=== PATIENT | female | born 2000 | race Hispanic/Latino ===

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

== ENCOUNTER 2021-08-02 06:44 | Emergency (ER) | payer MEDICAID ==
[~2021-08-02] VITALS: Ht 160 cm; Wt 53.1 kg
[2021-08-02] MEDS ORDERED: ACETAMINOPHEN 500 MG TABLET ONE (07:26)
[2021-08-02 07:30] LABS: BASOPHILS % (AUTO) 0.8 % (0.0-5.0); EOSINOPHILS % (AUTO) 3.6 % (0.0-8.0); HEMATOCRIT 33.8 % (36-48); LYMPHOCYTES % (AUTO) 24.6 % (21.0-51.0); MEAN CORPUSCULAR HEMOGLOBIN 27.6 pg (27.0-33.0); MEAN CORPUSCULAR HGB CONC 31.7 g/dL (32.0-36.0); MEAN CORPUSCULAR VOLUME 87.3 fL (80-100); MONOCYTES % (AUTO) 6.6 % (3.0-13.0); NEUTROPHILS % (AUTO) 64.1 % (40.0-77.0); PLATELET COUNT (AUTO) 299 K/uL (130-400); RED BLOOD CELL COUNT(AUTO) 3.87 MIL/uL (4.00-5.50); RED CELL DISTRIBUTION WIDTH 15.9 % (11.0-15.5)
[2021-08-02] MEDS ORDERED: ACETAMINOPHEN 500 MG TABLET PO SCH (07:30)
[2021-08-02 07:34] LABS: APPEARANCE,URINE Cloudy (CLEAR); BILIRUBIN,URINE Negative (NEGATIVE); COLOR,URINE Yellow (YELLOW); GLUCOSE, URINE (UA) Negative (NEGATIVE); KETONES,URINE Negative (NEGATIVE); LEUKOCYTE ESTERASE ,URINE Moderate (NEGATIVE); NITRATE,URINE Negative (NEGATIVE); OCCULT BLOOD,URINE Negative (NEGATIVE); PROTEIN,URINE Trace mg/dL (NEGATIVE); UROBILINOGEN,URINE 0.2 mg/dL (0.2-1.0)
[2021-08-02 07:36] LABS: HCG,QUAL RESULT POSITIVE (NEGATIVE)
[2021-08-02 07:43] LABS: BACTERIA,URINE Few /HPF (None Seen); RBC,URINE 0-1 /HPF (0-1); SQUAMOUS EPITHELIAL CELL,UR Many /HPF (0-2)
[2021-08-02 07:45] LABS: BILIRUBIN,TOTAL 0.3 mg/dL (0.2-1.0); CREATININE 0.4 mg/dL (0.5-1.5); POTASSIUM 4.1 mmol/L (3.5-5.1); TOTAL PROTEIN, SERUM 7.2 g/dL (6.0-8.3)
[2021-08-02 08:07] VITALS: BP 100/57
[2021-08-02 08:13] LABS: AMPHET/METH SCREEN,URINE NEGATIVE (NEGATIVE); BARBITURATE SCREEN, URINE NEGATIVE (NEGATIVE); BENZODIAZEPINES SCREEN,URINE POSITIVE (NEGATIVE); CANNABINOID SCREEN,URINE POSITIVE (NEGATIVE); COCAINE SCREEN,URINE POSITIVE (NEGATIVE); OPIATE SCREEN,URINE NEGATIVE (NEGATIVE); PHENCYCLIDINE SCREEN,URINE NEGATIVE (NEGATIVE)
[2021-08-02] MEDS ORDERED: NITR100C PO (08:18)
[2021-08-02] MEDS ORDERED: ACET-66 PO (08:18)
== END 2021-08-02 08:30 | disposition home or self-care (01) ==
LOC: EDH 06:44
DX: O23.42 Unspecified infection of urinary tract in pregnancy, second trimester (principal); O99.322 Drug use complicating pregnancy, second trimester; F14.10 Cocaine abuse, uncomplicated; F13.10 Sedative, hypnotic or anxiolytic abuse, uncomplicated; Z3A.20 20 weeks gestation of pregnancy
CPT/HCPCS: 36415; 76805; 80053; 80305; 81001; 81025; 82150; 83690; 84702; 85025; 87088

== ENCOUNTER 2021-08-03 23:15 | Inpatient (IN) | payer MEDICAID ==
[~2021-08-03] VITALS: Ht 160 cm; Wt 53.5 kg
[~2021-08-03 23:15] MED LIST: ACET-66 PO; NITR100C PO
[2021-08-03] MEDS ORDERED: LORAZEPAM 2 MG/ML 1 ML VIAL ONE (23:35)
[2021-08-03 23:50] LABS: BASOPHILS % (AUTO) 0.5 % (0.0-5.0); EOSINOPHILS % (AUTO) 1.5 % (0.0-8.0); HEMATOCRIT 34.2 % (36-48); LYMPHOCYTES % (AUTO) 25.8 % (21.0-51.0); MEAN CORPUSCULAR HEMOGLOBIN 27.6 pg (27.0-33.0); MEAN CORPUSCULAR HGB CONC 31.3 g/dL (32.0-36.0); MEAN CORPUSCULAR VOLUME 88.4 fL (80-100); MONOCYTES % (AUTO) 5.5 % (3.0-13.0); NEUTROPHILS % (AUTO) 66.3 % (40.0-77.0); PLATELET COUNT (AUTO) 330 K/uL (130-400); RED BLOOD CELL COUNT(AUTO) 3.87 MIL/uL (4.00-5.50); RED CELL DISTRIBUTION WIDTH 15.3 % (11.0-15.5); WHITE BLOOD COUNT (AUTO) 13.6 K/uL (4.8-10.8)
[2021-08-03 23:56] LABS: CARBON DIOXIDE 20 mmol/L (21-32); CHLORIDE 103 mmol/L (101-111); CREATININE 0.7 mg/dL (0.5-1.5); GLOMERULAR FILTR. RATE CALC 112 mL/min (>60); GLUCOSE,RANDOM 95 mg/dL (70-105); SODIUM SERUM 139 mmol/L (136-145); UREA NITROGEN, BLOOD 11 mg/dL (7-18)
[2021-08-03] MEDS ORDERED: 0.9% NACL 500ML IV.SOLN 500 ML IV ONE (23:59)
[2021-08-04] MEDS ORDERED: MAGNESIUM 2GM PREMIX 50ML 50 ML IV SCH
[2021-08-04] MEDS ORDERED: 0.9%NACL 1000ML 456 ML IV ONE
[2021-08-04 00:01] LABS: ALANINE AMINOTRANSFERASE 22 U/L (12-78); ALBUMIN 3.2 g/dL (3.5-5.0); ALCOHOL, BLOOD < 3 mg/dL (0-10); ASPARTATE AMINOTRANSFERASE 21 U/L (10-37); BILIRUBIN,TOTAL 0.2 mg/dL (0.2-1.0); TOTAL PROTEIN, SERUM 7.7 g/dL (6.0-8.3)
[2021-08-04] MEDS ORDERED: LEVETIRACETAM 500 MG/5 ML SD VIAL IV ONE ×2 (00:07→03:25)
[2021-08-04] MEDS: LEVETIRACETAM 500 MG in 0.9%NACL 100ML 100 ML IV SCH ×2 (00:10→20:31)
[2021-08-04] MEDS ORDERED: POTASSIUM BICARB/CIT AC 25 MEQ TABLET.EFF ONE (00:18)
[2021-08-04] MEDS ORDERED: ONDANSETRON 4MG INJ ONE ×2 (00:49→13:22)
[2021-08-04] MEDS ORDERED: LEVETIRACETAM 500 MG in 0.9%NACL 100ML 100 ML IV STA (02:54)
[2021-08-04] MEDS: 0.9%NACL 1000ML 1,000 ML IV SCH ×2 (03:28→15:57)
[2021-08-04 03:50] LABS: APPEARANCE,URINE Cloudy (CLEAR); BILIRUBIN,URINE Negative (NEGATIVE); COLOR,URINE Yellow (YELLOW); GLUCOSE, URINE (UA) Negative (NEGATIVE); KETONES,URINE 40 mg/dL (NEGATIVE); LEUKOCYTE ESTERASE ,URINE Negative (NEGATIVE); NITRATE,URINE Negative (NEGATIVE); OCCULT BLOOD,URINE Negative (NEGATIVE); PH,URINE 5.5 (5.0-8.0); PROTEIN,URINE Trace mg/dL (NEGATIVE)
[2021-08-04 03:59] LABS: BACTERIA,URINE None Seen /HPF (None Seen); MUCUS,URINE Rare LPF (None Seen); RBC,URINE None Seen /HPF (0-1); SQUAMOUS EPITHELIAL CELL,UR Rare /HPF (0-2); WBC,URINE 0-1 /HPF (0-1)
[2021-08-04] MEDS ORDERED: LORAZEPAM 2 MG/ML 1 ML VIAL IVP PRN ×3 (04:00→10:30)
[2021-08-04 04:08] LABS: AMPHET/METH SCREEN,URINE NEGATIVE (NEGATIVE); BARBITURATE SCREEN, URINE NEGATIVE (NEGATIVE); BENZODIAZEPINES SCREEN,URINE POSITIVE (NEGATIVE); CANNABINOID SCREEN,URINE POSITIVE (NEGATIVE); COCAINE SCREEN,URINE NEGATIVE (NEGATIVE); OPIATE SCREEN,URINE NEGATIVE (NEGATIVE); PHENCYCLIDINE SCREEN,URINE NEGATIVE (NEGATIVE)
[2021-08-04 04:10] VITALS: BP 106/56
[2021-08-04] MEDS ORDERED: POTASSIUM CHLORIDE 20MEQ/100ML 100 ML IV PRN (04:30)
[2021-08-04] MEDS ORDERED: POTASSIUM CHLORIDE 10% ELIXIR 20 MEQ/15 ML UDCUP PO PRN (04:30)
[2021-08-04 05:59] LABS: BASOPHILS % (AUTO) 0.4 % (0.0-5.0); EOSINOPHILS % (AUTO) 0.7 % (0.0-8.0); HEMATOCRIT 27.7 % (36-48); LYMPHOCYTES % (AUTO) 17.2 % (21.0-51.0); MEAN CORPUSCULAR HEMOGLOBIN 27.8 pg (27.0-33.0); MEAN CORPUSCULAR HGB CONC 32.1 g/dL (32.0-36.0); MEAN CORPUSCULAR VOLUME 86.6 fL (80-100); MONOCYTES % (AUTO) 4.9 % (3.0-13.0); NEUTROPHILS % (AUTO) 76.5 % (40.0-77.0); PLATELET COUNT (AUTO) 255 K/uL (130-400); RED CELL DISTRIBUTION WIDTH 15.3 % (11.0-15.5); WHITE BLOOD COUNT (AUTO) 10.4 K/uL (4.8-10.8)
[2021-08-04 06:39] LABS: ALBUMIN 2.4 g/dL (3.5-5.0); BILIRUBIN,TOTAL 0.3 mg/dL (0.2-1.0); CREATININE 0.4 mg/dL (0.5-1.5); MAGNESIUM 2.7 mg/dL (1.80-2.40); POTASSIUM 3.4 mmol/L (3.5-5.1)
[2021-08-04 08:12] VITALS: BP 97/46
[2021-08-04 10:54] VITALS: BP 98/56
[2021-08-04] MEDS ORDERED: ONDANSETRON 4MG INJ IVP PRN (13:30)
[2021-08-04] MEDS: PERMETHRIN LOTION 1% 59ML BOTTLE TP SCH (14:54)
[2021-08-04 17:20] VITALS: BP 101/56
[2021-08-04 20:35] VITALS: BP 106/65
[2021-08-05] VITALS (7 sets, daily range): BP systolic 93–109; BP diastolic 53–66
[2021-08-05] MEDS: PERMETHRIN LOTION 1% 59ML BOTTLE TP SCH ×2 (03:45→18:39)
[2021-08-05 04:11] LABS: EOSINOPHILS % (AUTO) 3.5 % (0.0-8.0); HEMATOCRIT 27.8 % (36-48); LYMPHOCYTES % (AUTO) 45.1 % (21.0-51.0); MEAN CORPUSCULAR HEMOGLOBIN 27.5 pg (27.0-33.0); MEAN CORPUSCULAR HGB CONC 30.6 g/dL (32.0-36.0); MONOCYTES % (AUTO) 8.8 % (3.0-13.0); NEUTROPHILS % (AUTO) 41.4 % (40.0-77.0); PLATELET COUNT (AUTO) 250 K/uL (130-400); RED BLOOD CELL COUNT(AUTO) 3.09 MIL/uL (4.00-5.50); RED CELL DISTRIBUTION WIDTH 15.8 % (11.0-15.5); WHITE BLOOD COUNT (AUTO) 6.1 K/uL (4.8-10.8)
[2021-08-05 04:20] LABS: ALBUMIN 1.9 g/dL (3.5-5.0); CREATININE 0.4 mg/dL (0.5-1.5)
[2021-08-05] MEDS: 0.9%NACL 1000ML 1,000 ML IV SCH (04:26)
[2021-08-05 04:34] LABS: POTASSIUM 2.8 mmol/L (3.5-5.1)
[2021-08-05] MEDS: LIDOCAINE HCL-MPF 1% 2ML VIAL IV PRN ×2 (04:44→09:25)
[2021-08-05] MEDS: KCL 20 MEQ ERTAB PO PRN ×4 (04:45→13:15)
[2021-08-05] MEDS: LEVETIRACETAM 500 MG in 0.9%NACL 100ML 100 ML IV SCH (09:25)
[2021-08-05] MEDS: LEVETIRACETAM 500 MG TABLET PO SCH (20:52)
[2021-08-06 04:09] VITALS: BP 100/53
[2021-08-06 04:49] LABS: BASOPHILS % (AUTO) 0.7 % (0.0-5.0); EOSINOPHILS % (AUTO) 2.9 % (0.0-8.0); HEMATOCRIT 29.8 % (36-48); LYMPHOCYTES % (AUTO) 33.1 % (21.0-51.0); MEAN CORPUSCULAR HEMOGLOBIN 27.8 pg (27.0-33.0); MEAN CORPUSCULAR HGB CONC 31.9 g/dL (32.0-36.0); MEAN CORPUSCULAR VOLUME 87.1 fL (80-100); MONOCYTES % (AUTO) 7.5 % (3.0-13.0); NEUTROPHILS % (AUTO) 55.4 % (40.0-77.0); PLATELET COUNT (AUTO) 271 K/uL (130-400); RED BLOOD CELL COUNT(AUTO) 3.42 MIL/uL (4.00-5.50); RED CELL DISTRIBUTION WIDTH 15.7 % (11.0-15.5); WHITE BLOOD COUNT (AUTO) 8.2 K/uL (4.8-10.8)
[2021-08-06 05:10] LABS: CREATININE 0.5 mg/dL (0.5-1.5); MAGNESIUM 1.7 mg/dL (1.80-2.40); POTASSIUM 4.4 mmol/L (3.5-5.1)
[2021-08-06 07:30] VITALS: BP 102/38
[2021-08-06] MEDS: LEVETIRACETAM 500 MG TABLET PO SCH (09:21)
[2021-08-06 11:12] VITALS: BP 105/61
[2021-08-06] MEDS ORDERED: PREN-18 PO (13:46)
[2021-08-06] MEDS ORDERED: LEVE-43 PO (13:46)
== END 2021-08-06 15:15 | disposition home or self-care (01) | DRG 566 ==
LOC: EDH 23:15 → EDHIP 23:16 → 4BH 08-04 04:04
PROVIDERS: ADMIT Internal Medicine; ATTEND Internal Medicine
DX: O99.352 Diseases of the nervous system complicating pregnancy, second trimester (principal); E44.1 Mild protein-calorie malnutrition; G40.409 Other generalized epilepsy and epileptic syndromes, not intractable, without status epilepticus; O99.112 Other diseases of the blood and blood-forming organs and certain disorders involving the immune mechanism complicating pregnancy, second trimester; B85.2 Pediculosis, unspecified; O99.322 Drug use complicating pregnancy, second trimester; D72.829 Elevated white blood cell count, unspecified; E87.6 Hypokalemia; F17.200 Nicotine dependence, unspecified, uncomplicated; O99.332 Smoking (tobacco) complicating pregnancy, second trimester; O99.282 Endocrine, nutritional and metabolic diseases complicating pregnancy, second trimester; F41.9 Anxiety disorder, unspecified; Z20.822 Contact with and (suspected) exposure to COVID-19; F19.90 Other psychoactive substance use, unspecified, uncomplicated; F14.10 Cocaine abuse, uncomplicated; O25.12 Malnutrition in pregnancy, second trimester; O99.342 Other mental disorders complicating pregnancy, second trimester; Z3A.20 20 weeks gestation of pregnancy; Z79.899 Other long term (current) drug therapy; Z91.19 Patient's noncompliance with other medical treatment and regimen; Z82.0 Family history of epilepsy and other diseases of the nervous system
CPT/HCPCS: 36415; 70544; 70551; 71045; 76805; 80048; 80053; 80177; 80305; 81001; 81025; 82040; 82150; 82607; 83690; 83735; 84132; 84702; 85025; 87040; 87088; 87635; 93005; C9803; G0378; J1953; J2060; J2405; J3475; J3480; J3490; J7040

== ENCOUNTER 2021-10-02 20:56 | Observation (INO) | payer MEDICAID ==
[~2021-10-02] VITALS: Ht 157.5 cm; Wt 59.0 kg
[~2021-10-02 20:56] MED LIST changes: +LEVE-43 PO; +PREN-18 PO
[2021-10-02 20:58] VITALS: BP 111/62
[2021-10-02 21:58] LABS: APPEARANCE,URINE Cloudy (CLEAR); BILIRUBIN,URINE Negative (NEGATIVE); COLOR,URINE Yellow (YELLOW); GLUCOSE, URINE (UA) Negative (NEGATIVE); KETONES,URINE Negative (NEGATIVE); LEUKOCYTE ESTERASE ,URINE Moderate (NEGATIVE); NITRATE,URINE Negative (NEGATIVE); OCCULT BLOOD,URINE Negative (NEGATIVE); PH,URINE 6.5 (5.0-8.0); PROTEIN,URINE Negative (NEGATIVE)
[2021-10-02 22:05] LABS: AMPHET/METH SCREEN,URINE NEGATIVE (NEGATIVE); BARBITURATE SCREEN, URINE NEGATIVE (NEGATIVE); BENZODIAZEPINES SCREEN,URINE NEGATIVE (NEGATIVE); CANNABINOID SCREEN,URINE NEGATIVE (NEGATIVE); COCAINE SCREEN,URINE NEGATIVE (NEGATIVE); OPIATE SCREEN,URINE NEGATIVE (NEGATIVE); PHENCYCLIDINE SCREEN,URINE NEGATIVE (NEGATIVE)
[2021-10-02 22:10] LABS: BACTERIA,URINE Few /HPF (None Seen); SQUAMOUS EPITHELIAL CELL,UR Moderate /HPF (0-2)
[2021-10-02 22:11] LABS: MUCUS,URINE Rare LPF (None Seen)
[2021-10-02] MEDS ORDERED: LACTATED RINGERS 1000ML IV SCH (23:30)
== END 2021-10-02 23:20 | disposition home or self-care (01) ==
LOC: EDH 20:56 → LDH 20:57
PROVIDERS: ADMIT Obstetrics & Gynecology; ATTEND Obstetrics & Gynecology
DX: O26.893 Other specified pregnancy related conditions, third trimester (principal); R10.30 Lower abdominal pain, unspecified; K59.00 Constipation, unspecified; Z3A.28 28 weeks gestation of pregnancy; Z79.899 Other long term (current) drug therapy
CPT/HCPCS: 59025; 80305; 81001; 87088; G0378

== ENCOUNTER 2021-10-22 13:01 | Emergency (ER) | payer MEDICAID ==
[~2021-10-22] VITALS: Ht 160 cm; Wt 61.7 kg
[2021-10-22 13:05] VITALS: BP 121/75
== END 2021-10-22 15:08 | disposition left against medical advice (07) ==
LOC: EDH 13:01
DX: M79.10 Myalgia, unspecified site (principal); Z20.822 Contact with and (suspected) exposure to COVID-19; Z53.21 Procedure and treatment not carried out due to patient leaving prior to being seen by health care provider
CPT/HCPCS: 87635; 87804 ×2; C9803

== ENCOUNTER 2024-06-14 08:32 | Inpatient (IN) | payer SELFPAY ==
[~2024-06-14] VITALS: Ht 160 cm; Wt 65.8 kg
--- NOTE | 2024-06-14 08:51 | ERN ---
General Chief Complaint: Abdominal Pain Stated Complaint: RUQ PAIN Time Seen by MD: 08:47 History of Present Illness Initial Comments Ms. Montenegro is a 23-year-old female who came to the ER due to right lower quadrant pain and nausea since 3 days. She reports right lower quadrant pain radiating to her back since 3 days, she had more than ten episodes of bile vomitings yesterday. Her last bowel movement was on Friday. She denies chest pain or shortness of breath or urinary frequency or pain with urination. Her L MP was on 05/31/24. Allergies: Coded Allergies: No Known Drug Allergies (Unverified Allergy, Unknown, 08/02/21) Home Meds Active Scripts Phenazopyridine HCl (Pyridium) 200 Mg Tab, 200 MG PO TIDP for 7 Days, #30 TAB Prov:PETTY JACKSON MD 06/14/24 Cephalexin Monohydrate (Keflex) 500 Mg Cap, 500 MG PO QID for 7 Days, #30 CAP Prov:PETTY JACKSON MD 06/14/24 Vit W-Ca,Fe,FA(<1 mg) ( Formula) 1 Each Tablet, 1 EACH PO DAILY for 90 Days, #90 TAB Prov:UNA VELAZQUEZ Jr., MD 08/06/21 Levetiracetam (Keppra) 500 Mg Tablet, 500 MG PO BID for 30 Days, #60 TAB Prov:UNA VELAZQUEZ Jr., MD 08/06/21 Nitrofurantoin Macrocrystal (Nitrofurantoin) 100 Mg Capsule, 100 MG PO BID for 5 Days, #10 CAP 0 Refills Prov:ABIMAEL FLOR MD 08/02/21 Acetaminophen (Tylenol) 500 Mg Tab, 500 MG PO Q6HPRN PRN for PAIN LEVEL 6 TO 10 for 7 Days, #30 TAB 0 Refills Prov:ABIMAEL FLOR MD 08/02/21 Past Medical History Past Medical History: No Pertinent History Past Surgical History: None Female( History) LMP: May 31, 2024 : 3 Para: 2 Aborts: 0 ROS Dictation Constitutional: No appetite loss, No fevers, chills , No night sweats, No weakness, fatigue Eye: No vision change, No redness, pain or discharge ENT: No hearing loss, ear pain or discharge, No nose bleeds, No sore throat, Neck: No swelling. pain or stiffness Respiratory: No cough, shortness of breath, wheezing Cardiovascular: No chest pain,, palpitations, dyspnea, No edema Gastrointestinal: Right lower quadrant pain with nausea and vomitings, No diarrhea, constipation Genitourinary: No painful urination, No blood in urine, No urinary incontinence, No frequency or urgency Musculoskeletal: No joint pain, muscle pain, swelling or stiffness Neurological: No numbness, tingling, No weakness, tremors or seizures Physical Exam Physical Exam Dictation General: Alert & Oriented, No acute distress. EENT: No conjunctival redness or discharge noted Tympanic membranes are clear, Normal hearing, Oral mucosa is moist, No pharyngeal erythema, No nasal discharge, No oral lesions. Neck: Non-tender, No jugular vein distention, No lymphadenopathy, No thyromegaly, Supple. Respiratory: Lungs are clear to auscultation, Respirations are non-labored, Breath sounds are equal, No chest wall tenderness, _. Cardiovascular: Normal rate, Normal rhythm, No murmur, Good pulses equal in all extremities, Normal peripheral perfusion, No edema. Gastrointestinal: Soft, right lower quadrant tenderness, Normal bowel sounds, No organomegaly, _. Musculoskeletal: Normal range of motion, Normal strength, No tenderness, No swelling, No deformity, Normal gait. Integumentary: Warm, Dry, [place], Intact, No pallor, No rash. 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 Requested By: DARRON KURTZ Order Number: [id number] Reading MD: Measurements Intervals [place] Rate: 99 P: 54 SD: 160 QRS: 62 QRSD: 74 T: -50 QT: 336 QTc: 432 Interpretive Statements Sinus rhythm Abnrm T, consider ischemia, anterolateral lds No previous ECG available for comparison CT Scan Comment REASON: RIGHT LOWER CUADRANT PAIN ORDERING PHYSICIAN: DARRON KURTZ MD PROCEDURE: ABD PEL WO - CT ABDOMEN/PELVIS W/O CONTRAST CT ABDOMEN/PELVIS W/O CONTRAST HISTORY: Right lower abdominal pain COMPARISON: None TECHNIQUE: Multiple sequential axial images of the abdomen and pelvis were obtained from the dome of the diaphragm through symphysis pubis. Patient was not given contrast through intravenous route. Oral contrast was not given. FINDINGS: No pleural effusion is seen bilaterally. There is no evidence of parenchymal disease or pulmonary nodule of the visualized lower lungs. Degenerative changes of the thoracolumbar spine are present. The heart is not enlarged. Liver measures 15.2 cm. Fatty changes of the liver are noted. The liver, spleen, adrenal glands and pancreas are unremarkable. There is no evidence of hydronephrosis bilaterally. No evidence of renal stone is seen. Fecal material is seen in the colon. There are normal size retroperitoneal and mesenteric lymph nodes. No ascites is seen. No CT evidence of acute appendicitis is seen. Clinical correlation is recommended. Pelvic sidewalls are symmetric bilaterally. Bladder is poorly distended. IMPRESSION: 1. No ascites is seen. MDM MDM Potential differential diagnoses include: Acute cystitis Acute pyelonephritis Appendicitis Ovarian cyst Assessment: I will order a CBC, BMP, UPT, urinalysis and administer medications according to the patient's complaint. Will order 1 Liter of NS for adequate hydration I will re-evaluate the patient after treatment and diagnostic exams have returned to determine whether they require further testing, can be safely discharged home, or need admission for further treatment and evaluation. Given the social determinants of health affecting care, including literacy, access to medical care, prescription drug management, and [id number] drugs, I will ensure that treatment plans are tailored accordingly. Revaluation : Patient is alert and oriented. States she feels better . Remarkable lab results are potassium 2.8, sodium 131, chloride 95, urine leukocyte esterase 250, urine WBC 51-100 , urine protein 20. Her EKG showed inverted T-waves. We will order 40 mEq p.o. and 20 mEq IV potassium chloride. Patient was advised admission to hospital due to severe hypokalemia and T-wave changes on EKG. Hospitalist consulted, they have accepted the patient for adm ission. Patient refused admission, will prescribe Keflex for UTI and advise eating bananas every day. Disposition: Will discharge patient at this time with prescription of Cephalexin and Pyridine PO and instructions to follow up with PCP for further ev aluation and treatment. ED Course Vital Signs Date Time Temp Pulse Resp B/P (MAP) Pulse Ox O2 Delivery O2 Flow Rate FiO2 06/14/24 08:33 100.6 107 20 116/65 96 Room Air 0 DX & DISP Disposition: AMA Departure Impression: Primary Impression: Cystitis Additional Impressions: Hypokalemia, Right lower quadrant pain, Nausea & vomiting Critical Time: 45 minutes Condition: Against Medical Advice Scripts Phenazopyridine HCl (Pyridium) 200 Mg Tab 200 MG PO TIDP for 7 Days, #30 TAB Prov: PETTY JACKSON MD 06/14/24 Cephalexin Monohydrate (Keflex) 500 Mg Cap 500 MG PO QID for 7 Days, #30 CAP Prov: PETTY JACKSON MD 06/14/24 Additional Instructions: Eat bananas twice a day. Return to ED emergently if you have severe muscle cramps or heart palpitations or tingling or numbness or confusion. Patient and the caregiver have been informed of all the diagnostic tests and the imaging conducted during the today's visit to the emergency room and has verbalized understanding of the results I have personally reviewed and interpreted all diagnostic exams performed here in the ER today as well as the vital signs documented by the nursing staff. The patient is now being discharged to home and should follow up with the primary care physician or the specialist as directed by the ER staff. Follow-up with primary care provider in 1 to 2 days. Take medications as directed here in the emergency room. Okay to continue home medications unless otherwise discussed during your visit in the emergency room today. Return to your nearest emergency room if symptoms worsen or if there is no improvement. Call 911 if you need immediate assistance. Take Tylenol or Motrin ove [id number] as needed and if no contraindications are present. Increase oral hydration. Referrals: SELF,REFERRAL (PCP) ATTESTATION BY PHYSICIAN I have seen and examined the patient. I reviewed the documentation, medical decision making, and treatment plan as noted by the resident above. I agree with the findings and plan of care. Darron Kurtz MD, NIHITHA MD Jun 14, 2024 08:51
[2024-06-14 09:00] LABS: BASOPHILS # (AUTO) 0.05 K/uL (0.00-0.20); BASOPHILS % (AUTO) 0.5 % (0.0-5.0); EOSINOPHILS # (AUTO) 0.34 K/uL (0.00-0.70); EOSINOPHILS % (AUTO) 3.4 % (0.0-8.0); IMMATURE GRANULOCYTE ABSOLUTE 0.04 K/uL (0-1); LYMPHOCYTES # (AUTO) 1.4 K/uL (1.0-4.8); MEAN CORPUSCULAR HEMOGLOBIN 28.5 pg (27.0-33.0); MEAN CORPUSCULAR HGB CONC 33.3 g/dL (32.0-36.0); MEAN CORPUSCULAR VOLUME 85.7 fL (79-99); MONOCYTES # (AUTO) 1.2 K/uL (0.1-1.0); MONOCYTES % (AUTO) 12.3 % (3.0-13.0); NEUTROPHILS # (AUTO) 6.9 K/uL (1.8-7.7); NEUTROPHILS % (AUTO) 69.4 % (40.0-77.0); PLATELET COUNT (AUTO) 222 K/uL (130-400); RED BLOOD CELL COUNT(AUTO) 4.67 MIL/uL (4.00-5.50); RED CELL DISTRIBUTION WIDTH 12.5 % (11.0-15.5); WHITE BLOOD COUNT (AUTO) 9.9 K/uL (4.8-10.8)
[2024-06-14 09:07] LABS: HCG,QUALITATIVE URINE NEGATIVE (NEGATIVE)
[2024-06-14 09:10] LABS: APPEARANCE,URINE CLOUDY (CLEAR); BILIRUBIN,URINE NEGATIVE (NEGATIVE); COLOR,URINE YELLOW (YELLOW); GLUCOSE, URINE (UA) NEGATIVE (NEGATIVE); KETONES,URINE 5 mg/dL (NEGATIVE); LEUKOCYTE ESTERASE ,URINE 250 Leu/uL (NEGATIVE); NITRATE,URINE NEGATIVE (NEGATIVE); PROTEIN,URINE 20 mg/dL (NEGATIVE); UROBILINOGEN,URINE 3 mg/dL (0.2-1.0)
[2024-06-14 09:11] LABS: ADD UA MICROSCOPIC YES
[2024-06-14 09:18] LABS: CREATININE 0.9 mg/dL (0.5-1.0)
[2024-06-14 09:19] LABS: POTASSIUM 2.8 mmol/L (3.5-5.1)
[2024-06-14] MEDS ORDERED: ketOROlac 15MG/ML VIAL (15MG/ML) IM ONE (09:30)
[2024-06-14] MEDS ORDERED: acetaMINOPHEN 325 MG TAB PO ONE (09:30)
[2024-06-14 09:36] LABS: BACTERIA,URINE MOD /HPF (None Seen); MUCUS,URINE RARE LPF (None Seen); SQUAMOUS EPITHELIAL CELL,UR MOD /HPF (0-2); TRANSITIONAL EPI CELLS,URINE FEW /HPF (None Seen); WBC,URINE 51-100 /HPF (0-1)
[2024-06-14] MEDS: [UNRECOGNIZED DRUG - OTHER] IV ONE (09:39)
[2024-06-14] MEDS: ondanSETRON 4MG INJ IVP ONE (09:39)
[2024-06-14] MEDS: ketOROlac 15MG/ML VIAL (15MG/ML) IV ONE (09:49)
[2024-06-14 09:53] VITALS: TEMP 100.4
[2024-06-14] MEDS: acetaMINOPHEN 325 MG TAB PO ONE (09:53)
--- NOTE | 2024-06-14 09:57 | HMCIMG ---
CT ABDOMEN/PELVIS W/O CONTRAST HISTORY: Right lower abdominal pain COMPARISON: None TECHNIQUE: Multiple sequential axial images of the abdomen and pelvis were obtained from the dome of the diaphragm through symphysis pubis. Patient was not given contrast through intravenous route. Oral contrast was not given. FINDINGS: No pleural effusion is seen bilaterally. There is no evidence of parenchymal disease or pulmonary nodule of the visualized lower lungs. Degenerative changes of the thoracolumbar spine are present. The heart is not enlarged. Liver measures 15.2 cm. Fatty changes of the liver are noted. The liver, spleen, adrenal glands and pancreas are unremarkable. There is no evidence of hydronephrosis bilaterally. No evidence of renal stone is seen. Fecal material is seen in the colon. There are normal size retroperitoneal and mesenteric lymph nodes. No ascites is seen. No CT evidence of acute appendicitis is seen. Clinical correlation is recommended. Pelvic sidewalls are symmetric bilaterally. Bladder is poorly distended. IMPRESSION: 1. No ascites is seen. CT was performed with one or more following dose reduction techniques: automated exposure control, adjustment of the mA and kv according to patient's size, or use of a iterative reconstruction technique.
[2024-06-14] MEDS ORDERED: acetaMINOPHEN 500 MG TABLET PO ONE (10:00)
[2024-06-14] MEDS: cefTRIAXone 1G VIAL IVPB ONE (10:15)
[2024-06-14] MEDS: PoTASSium chloRIDE 20MEQ ER 20 MEQ ERTAB PO ONE ×2 (10:15→12:48)
[2024-06-14] MEDS: PoTASSium chloRIDE 20MEQ/100ML 100 ML IV ONE (11:39)
--- NOTE | 2024-06-14 11:57 | EKG ---
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
[2024-06-14] MEDS ORDERED: ondanSETRON 4MG INJ IV PRN (12:00)
[2024-06-14] MEDS ORDERED: MAG/ALUM/SIMETH 30 ML UDCUP PO PRN (12:00)
[2024-06-14] MEDS ORDERED: oxyCODONE/aceTAMIN 5/325MG TAB PO PRN (12:00)
[2024-06-14] MEDS ORDERED: DiphenhydrAMINE HCL 50 MG/ML VIAL IV PRN (12:00)
[2024-06-14] MEDS ORDERED: hydrALAZine 20MG/ML VIAL IV PRN (12:00)
[2024-06-14] MEDS ORDERED: PoTASSium chl 10% ELIXIR 20MEQ 20 MEQ/15 ML UDCUP PO PRN (12:00)
[2024-06-14] MEDS ORDERED: LACTULOSE 20 GM/30 ML UDCUP PO PRN (12:00)
[2024-06-14] MEDS ORDERED: guaiFENesin-DM 200/20MG 10ML PO PRN (12:00)
[2024-06-14] MEDS ORDERED: ketOROlac 15MG/ML VIAL (15MG/ML) IV PRN (12:00)
[2024-06-14] MEDS ORDERED: PoTASSium chloRIDE 20MEQ ER 20 MEQ ERTAB PO PRN (12:00)
[2024-06-14] MEDS ORDERED: 0.9%NACL 1000ML 1,000 ML IV SCH (12:00)
[2024-06-14] MEDS ORDERED: ZOLPidem TARTrate 5 MG TAB PO PRN (12:00)
[2024-06-14] MEDS ORDERED: GLUCAGON 1MG KIT 1 MG ML IM PRN (12:00)
[2024-06-14] MEDS ORDERED: DEXTROSE 50%-WATER 50 ML DISP.SYRIN IV PRN (12:00)
[2024-06-14] MEDS ORDERED: MAGNESIUM 2GM PREMIX 50ML 50 ML IV PRN (12:00)
[2024-06-14] MEDS ORDERED: acetaMINOPHEN 325 MG TAB PO PRN ×3 (12:00)
[2024-06-14] MEDS ORDERED: NITROGLYCERIN 0.4 MG SL TAB SL PRN (12:00)
[2024-06-14] MEDS ORDERED: FAMOTIDINE 20MG VIAL IV PRN (12:00)
[2024-06-14] MEDS ORDERED: PoTASSium chloRIDE 10MEQ/100ML 100 ML IV PRN (12:00)
[2024-06-14] MEDS ORDERED: CEPH500B PO (12:34)
[2024-06-14] MEDS ORDERED: PHEN-847 PO (12:34)
[2024-06-14] MEDS: PHENAZOpyridine HCL 200 MG TAB 200 MG TABLET PO ONE (12:48)
[2024-06-14 12:50] VITALS: BP 114/70; PULSE 85; RESP 20; TEMP 100; O2SAT 99
[2024-06-14] MEDS ORDERED: ZOSYN 3.375GM+NS 50ML 50 ML IV SCH (13:00)
--- NOTE | 2024-06-14 13:08 | HP ---
[facility] Date of Service: Jun 14, 2024 Time of Service: 13:[address] Traylor HISTORY OF PRESENT ILLNESS: [ Patient refused to be admitted to hospital. 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 NEUROLOGICAL: Cranial nerves II-XII grossly intact. Motor is 5/5 in bilateral upper and lower extremities proximal to distal. No sensory deficits. HEENT: Face is symmetric. Pupils are equal and reactive. Extraocular movements are intact. NECK: Supple. No JVD. No thyromegaly. No submental, submandibular, pre- /postauricular, occipital or supraclavicular lymphadenopathy. CHEST: Normal chest expansion. No Telemetry. LUNGS: Absence of any rales, rhonchi or any wheezing. CARDIOVASCULAR: Regular. S1 and S2 normal. No appreciable rubs, murmurs or gallops. ABDOMEN: Soft, nontender, and nondistended. There is no rebound, voluntary guarding, or rigidity. : Deferred. No Davis. EXTREMITIES: Non-edematous and not cyanotic. No clubbing. Good capillary refill. SKIN: No skin breakdown. Vital Sign (Last 24 Hours) 06/14/24 12:50 Temp 100.0 Pulse 85 Resp 20 B/P (MAP) 114/70 Pulse Ox 99 O2 Delivery Room Air* O2 Flow Rate 0 FiO2 21 LABS: Laboratory: Test 06/14/24 08:50 Range/Units White Blood Count 9.9 4.8-10.8 K/uL Red Blood Count 4.67 4.00-5.50 MIL/uL Hemoglobin 13.3 12.0-16.0 g/dL Hematocrit 40.0 36-48 % Mean Corpuscular Volume 85.7 79-99 fL Mean Corpuscular Hemoglobin 28.5 27.0-33.0 pg Mean Corpuscular Hemoglobin Concent 33.3 32.0-36.0 g/dL Red Cell Distribution Width 12.5 11.0-15.5 % Platelet Count 222 130-400 K/uL Mean Platelet Volume 10.6 H 7.5-10.5 fL Immature Granulocyte % (Auto) 0.4 0-1 % Neutrophils (%) (Auto) 69.4 40.0-77.0 % Lymphocytes (%) (Auto) 14.0 L 21.0-51.0 % Monocytes (%) (Auto) 12.3 3.0-13.0 % Eosinophils (%) (Auto) 3.4 0.0-8.0 % Basophils (%) (Auto) 0.5 0.0-5.0 % Neutrophils # (Auto) 6.9 1.8-7.7 K/uL Lymphocytes # (Auto) 1.4 1.0-4.8 K/uL Monocytes # (Auto) 1.2 H 0.1-1.0 K/uL Eosinophils # (Auto) 0.34 0.00-0.70 K/uL Basophils # (Auto) 0.05 0.00-0.20 K/uL Absolute Immature Granulocyte (auto 0.04 0-1 K/uL Nucleated Red Blood Cells 0.0 0.0-0.19 % Urine Color YELLOW YELLOW Urine Appearance CLOUDY H CLEAR Urine pH 6.0 5.0-8.0 Urine Specific [place] 1.017 1.001-1.031 Urine Protein 20 H NEGATIVE mg/dL Urine Glucose (UA) NEGATIVE NEGATIVE mg/dL Urine Ketones 5 H NEGATIVE mg/dL Urine Occult Blood +- (TRACE) H NEGATIVE Urine Nitrate NEGATIVE NEGATIVE Urine Bilirubin NEGATIVE NEGATIVE mg/dL Urine Urobilinogen 3 H 0.2-1.0 mg/dL Urine Leukocyte Esterase 250 H NEGATIVE [place]/uL Urine RBC 2-5 H 0-1 /HPF Urine WBC 51-100 H 0-1 /HPF Urine Squamous Epithelial Cells MOD 0-2 /HPF Urine Transitional Epithelial Cells FEW None Seen /HPF Urine Bacteria MOD None Seen /HPF Urine HCG, Qualitative NEGATIVE NEGATIVE Sodium Level 131 L 136-145 mmol/L Potassium Level 2.8 *L 3.5-5.1 mmol/L Chloride Level 95 L 101-111 mmol/L Carbon Dioxide Level 27 21-32 mmol/L Blood Urea Nitrogen 9 7-18 mg/dL Creatinine 0.9 0.5-1.0 mg/dL Glomerular Filtration Rate Calc 92 >90 mL/min Random Glucose 105 70-105 mg/dL Lactic Acid Level 1.4 0.8-2.5 mmol/L Total Calcium 9.1 8.5-10.1 mg/dL Total Creatine Kinase 43 21-232 U/L Troponin I High Sensitivity < 4 L 4-50 ng/L Current Medications Medications (Trade) Dose Ordered Sig/Felisha Route PRN Reason Start Time Stop Time Status Last Admin Dose Admin Acetaminophen (TYLenol 325MG TAB) 650 mg Q4H PRN PO MILD PAIN (1-3) 06/14/24 12:00 07/14/24 11:59 Acetaminophen (TYLenol 325MG TAB) 650 mg Q6H PRN PO MILD PAIN (1-3) 06/14/24 12:00 06/14/24 12:02 DC Acetaminophen (TYLenol 325MG TAB) 650 mg Q6H PRN PO TEMPERATURE GREATER THAN 101.5 06/14/24 12:00 07/14/24 11:59 Al Hydroxide/Mg Hydroxide (MAALox PLUS 30ML) 30 ml Q6H PRN PO INDIGESTION 06/14/24 12:00 07/14/24 11:59 Dextrose (D50w) 50 ml AD PRN IV HYPOGLYCEMIA PROTOCOL 06/14/24 12:00 07/14/24 11:59 Diphenhydramine HCl (BENAdryl INJ) 25 mg Q6H PRN IV SEVERE ITCHING/RASH 06/14/24 12:00 07/14/24 11:59 Famotidine (Pepcid 20mg Vial) 20 mg BID IV 06/14/24 21:00 07/14/24 20:59 Famotidine (Pepcid 20mg Vial) 20 mg BID PRN IV NAUSEA/VOMITING 06/14/24 12:00 06/14/24 12:01 DC Glucagon (Glucagon 1mg Kit) 1 mg AD PRN IM HYPOGLYCEMIA PROTOCOL 06/14/24 12:00 07/14/24 11:59 Guaifenesin/ Dextromethorphan (RobiTUSSin DM 200/20MG 10ML) 10 ml Q4H PRN PO COUGH 06/14/24 12:00 07/14/24 11:59 Hydralazine HCl (APRESOLine 20MG INJ) 10 mg Q6H PRN IV For:SBP above 160;DBP above 90 06/14/24 12:00 07/14/24 11:59 Insulin Human Regular (humuLIN R 100 UNIT/ML 3ML) INSULIN SLIDING SCAL... ACHS SQ 06/14/24 16:30 07/14/24 16:29 Ketorolac Tromethamine (toRADol) 15 mg Q8H PRN IV MODERATE PAIN (4-6) 06/14/24 12:00 06/19/24 11:59 Lactulose (Constulose 20gm/ 30ml Udcup) 20 gm BID PRN PO CONSTIPATION 06/14/24 12:00 07/14/24 11:59 Magnesium Sulfate 50 ml @ 0 mls/hr PROTOCOL PRN IV OTHER [SEE ORDER COMMENTS] 06/14/24 12:00 07/14/24 11:59 Nitroglycerin (Nitrostat) 0.4 mg PROTOCOL PRN SL CHEST PAIN 06/14/24 12:00 07/14/24 11:59 Ondansetron HCl (zoFRAN 4MG INJ) 4 mg Q6H PRN IV NAUSEA/VOMITING 06/14/24 12:00 07/14/24 11:59 Oxycodone/ Acetaminophen (perCOCET) 1 tab Q6H PRN PO SEVERE PAIN (7-10) 06/14/24 12:00 06/21/24 11:59 Piperacillin Sod/ Tazobactam Sod 50 ml @ 12.5 mls/hr ZOSY8 IV 06/14/24 13:00 06/24/24 12:59 Potassium Chloride 100 ml @ 100 mls/hr AD PRN IV POTASSIUM PROTOCOL 06/14/24 12:00 07/14/24 11:59 Potassium Chloride (K-Dur/Klor-Con 20meq) 10 meq AD PRN PO POTASSIUM PROTOCOL 06/14/24 12:00 07/14/24 11:59 Potassium Chloride (KCl 10% Elixir 20meq/15ml) 10 meq AD PRN PO POTASSIUM PROTOCOL 06/14/24 12:00 07/14/24 11:59 Sodium Chloride 1,000 ml @ 100 mls/hr Q10H IV 06/14/24 12:00 07/14/24 11:59 Zolpidem Tartrate (AmbIEN) 5 mg HS PRN PO INSOMNIA 06/14/24 12:00 07/14/24 11:59 DIAGNOSTICS / RADIOLOGY: [ ] ASSESSMENT: [ Unable to obtain patient left AMA ] PLAN: [ Unable to obtain patient left AMA ] ATTESTATION BY PHYSICIAN I have seen and examined the patient. I reviewed the documentation, medical decision making, and treatment plan as noted by the mid-level provider above. I agree with the findings and plan of care. ISACC TRAYLOR MD, [facility] Jun 14, 2024 13:08
--- NOTE | 2024-06-14 13:09 | DS ---
Discharge Summary Hospital Course Summary: Patient left AMA Assessment/Plan: ASSESSMENT: [ Unable to obtain patient left AMA ] PLAN: [ Unable to obtain patient left AMA ] Home Medications: Active Scripts Phenazopyridine HCl (Pyridium) 200 Mg Tab, 200 MG PO TIDP for 7 Days, #30 TAB Prov:PETTY JACKSON MD 06/14/24 Cephalexin Monohydrate (Keflex) 500 Mg Cap, 500 MG PO QID for 7 Days, #30 CAP Prov:PETTY JACKSON MD 06/14/24 Vit W-Ca,Fe,FA(<1 mg) ( Formula) 1 Each Tablet, 1 EACH PO DAILY for 90 Days, #90 TAB Prov:UNA VELAZQUEZ Jr., MD 08/06/21 Levetiracetam (Keppra) 500 Mg Tablet, 500 MG PO BID for 30 Days, #60 TAB Prov:UNA VELAZQUEZ Jr., MD 08/06/21 Nitrofurantoin Macrocrystal (Nitrofurantoin) 100 Mg Capsule, 100 MG PO BID for 5 Days, #10 CAP 0 Refills Prov:ABIMAEL FLOR MD 08/02/21 Acetaminophen (Tylenol) 500 Mg Tab, 500 MG PO Q6HPRN PRN for PAIN LEVEL 6 TO 10 for 7 Days, #30 TAB 0 Refills Prov:ABIMAEL FLOR MD 08/02/21 Time spent arranging discharge: 1-30 minutes ATTESTATION BY PHYSICIAN I have seen and examined the patient. I reviewed the documentation, medical decision making, and treatment plan as noted by the mid-level provider above. I agree with the findings and plan of care. ISACC TRAYLOR MD, KATARZYNA B [facility] Jun 14, 2024 13:09
[2024-06-14] MEDS ORDERED: INSULIN humuLIN R 100 UNIT/ML 3ML SQ SCH (16:30)
[2024-06-14] MEDS ORDERED: FAMOTIDINE 20MG VIAL IV SCH (21:00)
== END 2024-06-14 13:15 | disposition left against medical advice (07) | DRG 690 ==
LOC: EDH 08:32 → EDHIP 08:33
PROVIDERS: ADMIT Internal Medicine; ATTEND Internal Medicine
DX: N30.00 Acute cystitis without hematuria (principal); E87.6 Hypokalemia; Z53.29 Procedure and treatment not carried out because of patient's decision for other reasons
CPT/HCPCS: 36415; 74176; 80048; 81001; 81025; 82550; 83605; 84484; 85025; 87040; 87086; 87186; 93005; 96365; 96375; G0378; J0696; J1885; J2405; J3480; J7030

== ENCOUNTER 2024-09-14 06:41 | Emergency (ER) | payer SELFPAY ==
[~2024-09-14] VITALS: Ht 160 cm; Wt 75.3 kg
[~2024-09-14 06:41] MED LIST changes: +CEPH500B PO; +PHEN-847 PO
--- NOTE | 2024-09-14 07:29 | ERN ---
ED Note History of Present Illness Stated Complaint: stomach pain, some bleeding from vag, Chief Complaint: Vaginal Problems/Bleeding Time Seen by MD: 07:22 Dictation: Patient is a 24-year-old female presents to the ED due to passage vaginal clot earlier today. Patient also associated abdominal cramping, nausea, three vomiting episodes today. LMP ended September 03. Patient denies any fevers, chills, chest pain, headaches. Allergies: Coded Allergies: No Known Drug Allergies (Unverified Allergy, Unknown, 08/02/21) Home Meds Active Scripts Phenazopyridine HCl (Pyridium) 200 Mg Tab, 200 MG PO TIDP for 7 Days, #30 TAB Prov:PETTY JACKSON MD 06/14/24 Cephalexin Monohydrate (Keflex) 500 Mg Cap, 500 MG PO QID for 7 Days, #30 CAP Prov:PETTY JACKSON MD 06/14/24 Vit W-Ca,Fe,FA(<1 mg) ( Formula) 1 Each Tablet, 1 EACH PO DAILY for 90 Days, #90 TAB Prov:UNA VELAZQUEZ Jr., MD 08/06/21 Levetiracetam (Keppra) 500 Mg Tablet, 500 MG PO BID for 30 Days, #60 TAB Prov:UNA VELAZQUEZ Jr., MD 08/06/21 Nitrofurantoin Macrocrystal (Nitrofurantoin) 100 Mg Capsule, 100 MG PO BID for 5 Days, #10 CAP 0 Refills Prov:ABIMAEL FLOR MD 08/02/21 Acetaminophen (Tylenol) 500 Mg Tab, 500 MG PO Q6HPRN PRN for PAIN LEVEL 6 TO 10 for 7 Days, #30 TAB 0 Refills Prov:ABIMAEL FLOR MD 08/02/21 Past Medical History Past Medical History: No Pertinent History Surgical History: None : 3 Para: 2 Aborts: 0 Review of System Dictation Constitutional-no chills, weight loss/gain, fever Eyes-no injury, pain, redness and discharge ENT-no injury, pain, swelling Cardiovascular no chest pain, palpitations, edema Respiratory no shortness of breath, cough, wheezing Abdomen/GI-no diarrhea, constipation. Positive for abdominal cramping, nausea, vomiting Back no injury and pain Genitourinary no injury or discharge. Passage of 1 clot and some bleeding Musculoskeletal/extremities no injury, deformity Skin no rash, discoloration Neuro-no headache, weakness, numbness, tingling, seizures, tremors Psych-no suicidal ideation, homicidal ideation, hallucinations, depression, anxiety, memory loss Initial Vital Sign VS Vital Signs Date Time Temp Pulse Resp B/P (MAP) Pulse Ox O2 Delivery O2 Flow Rate FiO2 09/14/24 07:11 98.1 54 20 110/52 99 0 09/14/24 07:40 Room Air* 21 Physical Exam Dictation VITAL SIGNS: Reviewed. GENERAL APPEARANCE: Alert, oriented x3, no acute distress, obese. HEAD AND FACE: Non-traumatic. EYES: PERRL, pink conjunctivas, eyelid no trauma, anterior chamber clear. EARS: Pinnas intact and no signs of trauma or erythema. Ear canals clear and no discharge. TMs no erythema. NOSE: No discharge, no bleeding. OROPHARYNX: Mouth normal, teeth no caries, tongue pink. Pharynx clear, no erythema. Tonsils no exudates, no abscesses noted. Mucous membrane moist. NECK: Supple, non-tender, no thyromegaly, no masses, no JVD, no bruits. BREAST: Deferred. CHEST: No tenderness, no crepitus, no paradoxical movement, no retractions. LUNGS: Clear, well-ventilated, symmetric, no rales, no wheezing, no rhonchi, no stridor, good breath sounds bilaterally. HEART: Regular rate, regular rhythm, no murmur, no gallops. VASCULAR: No peripheral edema. ABDOMEN: Soft, positive bowel sounds, nondistended, no guarding, nontender, no rebound, no masses no hepatomegaly, no splenomegaly, no Chao's sign, no hernias. Tender to palpation lower abdomen, greater on right. RECTAL: Swelling, lesion, possible pilonidal cyst GENITAL: Deferred. Sensation intact. NEUROLOGICAL: Normal speech, gross motor function intact, gross sensory function intact. MUSCULOSKELETAL: Neck nontender, full range of motion, back nontender. Limited range of motion due to lower back pain illicit on sitting up and with leg raise bilaterally. EXTREMITIES: Nontender, full range of motion. SKIN: Color pink, dry, no turgor, no rash, no lacerations, no abrasions, no contusions. LYMPHATICS: Deferred. Results (Laboratory/Radiology) Laboratory/Radiology Laboratory Tests Test 09/14/24 07:20 09/14/24 07:38 Urine HCG, Qualitative NEGATIVE (NEGATIVE) Urine Opiates Screen NEGATIVE (NEGATIVE) Urine Barbiturates Screen NEGATIVE (NEGATIVE) Urine Phencyclidine Screen NEGATIVE (NEGATIVE) Urine Amphetamines Screen NEGATIVE (NEGATIVE) Urine Benzodiazepines Screen NEGATIVE (NEGATIVE) Urine Cocaine Screen NEGATIVE (NEGATIVE) Urine Marijuana (THC) Screen NEGATIVE (NEGATIVE) White Blood Count 6.8 K/uL (4.8-10.8) Red Blood Count 4.33 MIL/uL (4.00-5.50) Hemoglobin 12.4 g/dL (12.0-16.0) Hematocrit 38.6 % (36-48) Mean Corpuscular Volume 89.1 fL (79-99) Mean Corpuscular Hemoglobin 28.6 pg (27.0-33.0) Mean Corpuscular Hemoglobin Concent 32.1 g/dL (32.0-36.0) Red Cell Distribution Width 12.9 % (11.0-15.5) Platelet Count 265 K/uL (130-400) Mean Platelet Volume 10.2 fL (7.5-10.5) Immature Granulocyte % (Auto) 0.3 % (0-1) Neutrophils (%) (Auto) 41.2 % (40.0-77.0) Lymphocytes (%) (Auto) 47.1 % (21.0-51.0) Monocytes (%) (Auto) 6.3 % (3.0-13.0) Eosinophils (%) (Auto) 4.2 % (0.0-8.0) Basophils (%) (Auto) 0.9 % (0.0-5.0) Neutrophils # (Auto) 2.8 K/uL (1.8-7.7) Lymphocytes # (Auto) 3.2 K/uL (1.0-4.8) Monocytes # (Auto) 0.4 K/uL (0.1-1.0) Eosinophils # (Auto) 0.29 K/uL (0.00-0.70) Basophils # (Auto) 0.06 K/uL (0.00-0.20) Absolute Immature Granulocyte (auto 0.02 K/uL (0-1) Nucleated Red Blood Cells 0.0 % (0.0-0.19) Sodium Level 136 mmol/L (136-145) Potassium Level 3.5 mmol/L (3.5-5.1) Chloride Level 103 mmol/L (101-111) Carbon Dioxide Level 31 mmol/L (21-32) Blood Urea Nitrogen 17 mg/dL (7-18) Creatinine 0.6 mg/dL (0.5-1.0) Glomerular Filtration Rate Calc 128 mL/min (>90) Random Glucose 96 mg/dL (70-105) Total Calcium 9.0 mg/dL (8.5-10.1) Total Bilirubin 0.2 mg/dL (0.2-1.0) Aspartate Amino Transf (AST/SGOT) 14 U/L (10-37) Alanine Aminotransferase (ALT/SGPT) 27 U/L (12-78) Alkaline Phosphatase 66 U/L (50-136) Total Protein 7.5 g/dL (6.0-8.3) Albumin 3.6 g/dL (3.5-5.0) Serum Test, Qualitative NEGATIVE (NEGATIVE) ED Course ED Course Orders Procedure Category Date Status Time Cbc With Differential LAB 09/14/24 Complete 07:15 Comprehensive LAB 09/14/24 Complete Metabolic Panel 07:15 ,Urine Test LAB 09/14/24 Complete 07:15 Testing, LAB 09/14/24 Complete Serum Hcg 07:15 Drug Screen Urine LAB 09/14/24 Complete 07:15 Current Medications Medications (Trade) Dose Ordered Sig/Felisha Route PRN Reason Start Time Stop Time Status Last Admin Dose Admin Ondansetron HCl (zoFRAN 4MG INJ) 4 mg ONCE ONCE IVP 09/14/24 08:30 09/14/24 09:07 DC Vital Signs Date Time Temp Pulse Resp B/P (MAP) Pulse Ox O2 Delivery O2 Flow Rate FiO2 09/14/24 09:11 98.1 70 18 98/72 99 Room Air* 0 21 09/14/24 07:40 72 18 107/72 98 Room Air* 0 21 09/14/24 07:11 98.1 54 20 110/52 99 0 Medical Decision Making MDM MDM INITIAL IMPRESSION Initial history and physical concerning for , irregular menstruation. Contributing medical problems: I have reviewed the triage nursing notes and vital signs. Initial plan: Laboratory evaluation, UA DATA REVIEW I have reviewed additional NN, repeat VS, and monitoring where indicated. Heart rate, blood pressure, and O2 saturation are acceptable. Mejia diagnostic results: HCG negative Other independent historian: Review of external data: ED COURSE Interventions: None Reassessment: DISPOSITION Final diagnostic impression: I discussed my findings, clinical impression and treatment recommendations with the patient. My final plan for disposition was made based upon -mild risk of complications and potential morbidity of the patient's condition. -Discussion with the patient regarding management options. -Discussed the case and developed a plan of care as documented with attending Dr. Kala Prakash. Results were reviewed with patient but due to patient's ride arriving patient left without discharge instructions. DX & DISP Disposition: Discharge Departure Impression: Primary Impression: Vaginal bleeding, abnormal Condition: Stable Additional Instructions: Results were reviewed with patient and patient demonstrated understanding but due to patient's ride arriving patient left without formal discharge instructions. FOLLOW-UP WITH PRIMARY CARE PROVIDER IN 1 TO 2 DAYS. TAKE MEDICATIONS DIRECT ED HERE IN THE EMERGENCY ROOM. OKAY TO CONTINUE HOME MEDICATIONS UNLESS OTHERWISE DISCUSSED DURING YOUR VISIT IN THE EMERGENCY ROOM TODAY. RETURN TO YOUR NEAREST EMERGENCY ROOM IF SYMPTOMS WORSEN OR IF THERE IS NO IMPROVEMENT. CALL 911 IF YOU NEED IMMEDIATE ASSISTANCE. TAKE TYLENOL [id number] NEEDED AND IF NO CONTRAINDICATIONS ARE PRESENT. INCREASE ORAL HYDRATION. A WOUND CULTURE OR URINE CULTURE WAS ORDERED HERE IN THE EMERGENCY ROOM DEPARTMENT PLEASE FOLLOW-UP WITH PRIMARY CARE PROVIDER AND ADVISE THEM TO GET REPEAT PORTS FROM OUR FACILITY. IF YOU HAD ANY YESSICA WRAP/SPLINTS THAT WERE APPLIED HERE, PLEASE DO NOT REMOVE THEM UNTIL YOU SEE YOUR PRIMARY CARE OR SPECIALTY. Referrals: SELF,REFERRAL (PCP) and Alessandra discussed the patient's presentation, lab results and other findings in real-time. The patient has been stable in the emergency department and decision was made to discharge. Her ride came before the paperwork was complete but discharge instructions were summarized with the patient verbally by prior to her departure. I concur with the management DIANN CHRISTIANSON MD Sep 14, 2024 07:29 KALA PRAKASH MD Sep 14, 2024 14:08
[2024-09-14 07:37] LABS: AMPHET/METH SCREEN,URINE NEGATIVE (NEGATIVE); BARBITURATE SCREEN, URINE NEGATIVE (NEGATIVE); BENZODIAZEPINES SCREEN,URINE NEGATIVE (NEGATIVE); CANNABINOID SCREEN,URINE NEGATIVE (NEGATIVE); COCAINE SCREEN,URINE NEGATIVE (NEGATIVE); OPIATE SCREEN,URINE NEGATIVE (NEGATIVE); PHENCYCLIDINE SCREEN,URINE NEGATIVE (NEGATIVE)
[2024-09-14 07:44] LABS: BASOPHILS # (AUTO) 0.06 K/uL (0.00-0.20); BASOPHILS % (AUTO) 0.9 % (0.0-5.0); EOSINOPHILS # (AUTO) 0.29 K/uL (0.00-0.70); EOSINOPHILS % (AUTO) 4.2 % (0.0-8.0); HEMATOCRIT 38.6 % (36-48); IMMATURE GRANULOCYTE ABSOLUTE 0.02 K/uL (0-1); LYMPHOCYTES # (AUTO) 3.2 K/uL (1.0-4.8); LYMPHOCYTES % (AUTO) 47.1 % (21.0-51.0); MEAN CORPUSCULAR HEMOGLOBIN 28.6 pg (27.0-33.0); MEAN CORPUSCULAR HGB CONC 32.1 g/dL (32.0-36.0); MEAN CORPUSCULAR VOLUME 89.1 fL (79-99); MONOCYTES # (AUTO) 0.4 K/uL (0.1-1.0); MONOCYTES % (AUTO) 6.3 % (3.0-13.0); NEUTROPHILS # (AUTO) 2.8 K/uL (1.8-7.7); NEUTROPHILS % (AUTO) 41.2 % (40.0-77.0); PLATELET COUNT (AUTO) 265 K/uL (130-400); RED BLOOD CELL COUNT(AUTO) 4.33 MIL/uL (4.00-5.50); RED CELL DISTRIBUTION WIDTH 12.9 % (11.0-15.5); WHITE BLOOD COUNT (AUTO) 6.8 K/uL (4.8-10.8)
[2024-09-14 07:55] LABS: HCG,QUALITATIVE URINE NEGATIVE (NEGATIVE)
[2024-09-14 07:56] LABS: CREATININE 0.6 mg/dL (0.5-1.0); POTASSIUM 3.5 mmol/L (3.5-5.1)
[2024-09-14 07:59] LABS: ALBUMIN 3.6 g/dL (3.5-5.0); BILIRUBIN,TOTAL 0.2 mg/dL (0.2-1.0); TOTAL PROTEIN, SERUM 7.5 g/dL (6.0-8.3)
[2024-09-14] MEDS: ondanSETRON 4MG INJ IVP ONE (09:06)
--- NOTE | 2024-09-14 09:07 | NUR ---
PT STATES NO SORE THROAT REFUSING STREP AND READY TO GO HOME NOTIFIED ER
[2024-09-14 09:11] VITALS: BP 98/72; PULSE 70; RESP 18; TEMP 98.1; O2SAT 99
--- NOTE | 2024-09-14 10:00 | NUR ---
PT ADVISED NEEDED TO LEAVE HER RIDE WAS HERE. AOX4 NO SIGNS OF DISTRESS. PT IS LEAVING AMA EDUCATED PT ON THE POSSIBLE RISKS VERBALIZED UNDERSTANDING STATES "I HAVE AN APPT THIS WEEK WITH QUILL REAMER
== END 2024-09-14 10:25 | disposition left against medical advice (07) ==
LOC: EDH 06:41
DX: N93.9 Abnormal uterine and vaginal bleeding, unspecified (principal); R10.9 Unspecified abdominal pain; R11.2 Nausea with vomiting, unspecified; Z79.899 Other long term (current) drug therapy
CPT/HCPCS: 36415; 80053; 80305; 81025; 84703; 85025; 99283